=== PATIENT | male | born 1985 | race Caucasian/White ===

== ENCOUNTER 2022-01-02 08:59 | Emergency (ER) | payer OTHER ==
[~2022-01-02] VITALS: Ht 176 cm; Wt 75.7 kg
[2022-01-02] MEDS ORDERED: DICYCLOMINE 10 MG/ML (BENTYL) 2 ML AMP IM STA (10:22)
--- NOTE | 2022-01-02 10:28 | ED GI ---
General Chief Complaint: Abdominal/GI Problems Stated Complaint: RT SIDE PAIN Nursing Triage Note: RIGHT SIDED ABDOMINAL PAIN STARTED LAST WEEK "COMES AND GOES" SINCE 2014. THIS TIME HOWEVER STATES HE HAS SHOOTING PAIN GOING DOWN THE FRONT OF HIS RIGHT LEG INTO THE TOP OF HIS FOOT. Source of Information: Patient Exam Limitations: No Limitations History of Present Illness Date Seen by Provider: Jan 02, 2022 Time Seen by Provider: 10:18 Initial Comments Patient is a 36-year-old male who presents to the emergency department today with a chief complaint of right lower quadrant abdominal pain that started over the last 3 days patient states. He has had normal bowel movements, the last one was yesterday. Nonblack nonbloody. No nausea or vomiting. He states the pain radiates from the right lower quadrant, into his groin and then down into his anterior thigh and leg. He denies anything that exacerbates the pain. Movement, walking, nothing changes it. He has not taken anything for the pain. No fevers or chills. No COVID concerns. He states he has had similar pain in the past. Denies testicular swelling but states that he can "feel" his right testicle. No problems with urination. All other review of systems reviewed and negative except as stated. Timing/Duration: 3-4 Days Severity/Quality: Moderate Location: RLQ Radiation: Other (into the groin and down the right leg "sometimes") Activities at Onset: None Modifying Factors: Improves With Other (heavy lifting worsens pain) Associated Symptoms: Denies Symptoms Allergies and Home Medications Allergies Coded Allergies: No Known Drug Allergies (Unverified , 01/02/22) Patient Home Medication List Home Medication List Reviewed: Yes Review of Systems Review of Systems Constitutional: see HPI Respiratory: No Symptoms Reported Cardiovascular: No Symptoms Reported Gastrointestinal: Abdominal Pain Genitourinary: Other (hard to get started) Musculoskeletal: no symptoms reported Skin: no symptoms reported All Other Systems Reviewed Negative Unless Noted: Yes Past Gvqahfn-Gqziaj-Tiybxg Hx Patient Social History Tobacco Use?: No Use of E-Cig and/or Vaping dev: No Substance use?: No Alcohol Use?: No Pt feels they are or have been: No Immunizations Up To Date Influenza Vaccine Up-to-Date: No; Not Current First/Initial COVID19 Vaccinat: 2020 Second COVID19 Vaccination [place]: 2020 COVID19 Vaccine Room Service Associate: MODERNA Physical Exam Vital Signs Vital Signs - First Documented 01/02/22 09:20 Temp 36.3 Pulse 71 Resp 18 B/P (MAP) 102/60 (74) Pulse Ox 100 O2 Delivery Room Air Capillary Refill : Less Than 3 Seconds Height/Weight/BMI Height: '" Weight: lbs. oz. kg; 24.00 BMI Method: General Appearance: WD/WN, no apparent distress HEENT: PERRL/EOMI Neck: normal inspection Respiratory: lungs clear, normal breath sounds, no respiratory distress, no accessory muscle use Cardiovascular: regular rate, rhythm Peripheral Pulses: 2+ Radial Pulses (R), 2+ Radial Pulses (L) Gastrointestinal: normal bowel sounds, non tender, soft, no organomegaly, no pulsatile mass Extremities: normal range of motion, non-tender, normal inspection, no pedal edema, no calf tenderness Neurologic/Psychiatric: alert, oriented x 3, other (flat affect; takes several minutes to answer. vague about symptoms and even in answering questions on physical examination regarding reproducible pain) Skin: normal color Progress/Results/Core Measures Results/Orders Lab Results Laboratory Tests Test 01/02/22 13:50 Range/Units Urine Color YELLOW Urine Clarity SL CLOUDY Urine pH 6.5 5-9 Urine Specific Braxton <=1.005 1.016-1.022 Urine Protein NEGATIVE NEGATIVE Urine Glucose (UA) NEGATIVE NEGATIVE Urine Ketones NEGATIVE NEGATIVE Urine Nitrite NEGATIVE NEGATIVE Urine Bilirubin NEGATIVE NEGATIVE Urine Urobilinogen 1.0 < = 1.0 MG/DL Urine Leukocyte Esterase NEGATIVE NEGATIVE Urine RBC (Auto) NEGATIVE NEGATIVE Urine RBC NONE /HPF Urine WBC RARE /HPF Urine Squamous Epithelial Cells RARE /HPF Urine Crystals NONE /LPF Urine Bacteria TRACE /HPF Urine Casts NONE /LPF Urine Mucus NEGATIVE /LPF Urine Culture Indicated NO Urine Opiates Screen NEGATIVE NEGATIVE Urine Oxycodone Screen NEGATIVE NEGATIVE Urine Methadone Screen NEGATIVE NEGATIVE Urine Propoxyphene Screen NEGATIVE NEGATIVE Urine Barbiturates Screen NEGATIVE NEGATIVE Ur Tricyclic Antidepressants Screen NEGATIVE NEGATIVE Urine Phencyclidine Screen NEGATIVE NEGATIVE Urine Amphetamines Screen NEGATIVE NEGATIVE Urine Methamphetamines Screen NEGATIVE NEGATIVE Urine Benzodiazepines Screen NEGATIVE NEGATIVE Urine Cocaine Screen NEGATIVE NEGATIVE Urine Cannabinoids Screen NEGATIVE NEGATIVE My Orders Orders - TANJA KAY MD Ua Culture If Indicated (01/02/22 10:22) Drug Screen Stat (Urine) (01/02/22 10:22) Ketorolac Injection (Toradol Injection) (01/02/22 10:30) Dicyclomine Injection (Bentyl Injection) (01/02/22 10:22) Medications Given in ED Vital Signs/I&O 01/02/22 01/02/22 09:20 14:22 Temp 36.3 Pulse 71 68 Resp 18 18 B/P (MAP) 102/60 (74) 136/106 Pulse Ox 100 98 O2 Delivery Room Air Blood Pressure Mean: 74 Progress Progress Note : Time: 14:12 Progress Note Had great difficulty in obtaining urine from the patient. When he initially voided the wrong patient stickers were placed on the specimen, the lab due to policy, would not send the specimen back. Patient's pain was controlled with the Toradol and dicyclomine. He has no concerning findings on physical exam for acute surgical process. I discussed with him the potential for ureteral stone. We will assess for microscopic hematuria with urinalysis. Also secondary to his overall demeanor and hesitancy with exam and questioning checking a urine drug screen. He has ambulated back and forth to the bathroom several times. He has tolerated a lunch tray without nausea or vomiting. Anticipate discharge to home with NSAIDs, return precautions and follow-up with primary care. Departure Impression Primary Impression: Abdominal pain Qualified Codes: R10.31 - Right lower quadrant pain Disposition: 01 HOME, SELF-CARE Condition: Improved Departure-Patient Inst. Decision time for Depature: 14:13 Referrals: [facility]/ARIN LOTFON,LOCAL PHYSICIAN (PCP) Primary Care Physician Patient Instructions: Abdominal Pain, Adult ED Add. Discharge Instructions: Follow a clear liquid diet for the next 6 to 12 hours, if you are tolerating this well you can advance as tolerated. Take [id number] Aleve or generic naproxen 2 pills twice daily with food as needed for pain. If you develop a fever over 101, worsening abdominal pain, vomiting, black or bloody stools please come back to the emergency room for reevaluation. You should follow-up with a primary care physician, potentially through [facility] for further evaluation and management of this chronic pain. Copy Copies To 1: [facility]/TANJA MONTELONGO MD Jan 02, 2022 10:28
[2022-01-02] MEDS ORDERED: KETOROLAC 30 MG/ML VIAL IM ONE (10:30)
[2022-01-02 13:53] LABS: BILIRUBIN,URINE NEGATIVE (NEGATIVE); CLARITY,URINE SL CLOUDY; COLOR,URINE YELLOW; GLUCOSE, URINE (UA) NEGATIVE (NEGATIVE); KETONES,URINE NEGATIVE (NEGATIVE); LEUKOCYTE ESTERASE ,URINE NEGATIVE (NEGATIVE); NITRITE,URINE NEGATIVE (NEGATIVE); PH,URINE 6.5 (5-9); PROTEIN,URINE NEGATIVE (NEGATIVE)
[2022-01-02 14:01] LABS: BACTERIA,URINE TRACE /HPF; SQUAMOUS EPITHELIAL CELL,UR RARE /HPF; WBC,URINE RARE /HPF
[2022-01-02 14:11] LABS: AMPHETAMINE SCREEN, URINE NEGATIVE (NEGATIVE); BARBITURATE SCREEN URINE NEGATIVE (NEGATIVE); BENZODIAZEPINES SCREEN URINE NEGATIVE (NEGATIVE); CANNABINOID SCREEN, URINE NEGATIVE (NEGATIVE); COCAINE SCREEN URINE NEGATIVE (NEGATIVE); METHADONE STAT NEGATIVE (NEGATIVE); OPIATE SCREEN URINE NEGATIVE (NEGATIVE); OXYCODONE STAT NEGATIVE (NEGATIVE); PROPOXYPHENE STAT NEGATIVE (NEGATIVE); TRICYCLIC ANTIDEPRESSANTS SCRE NEGATIVE (NEGATIVE)
[2022-01-02 14:22] VITALS: BP 136/106
== END 2022-01-02 14:23 | disposition home or self-care (01) ==
LOC: ER 09:04
DX: R10.31 Right lower quadrant pain (principal)
CPT/HCPCS: 80306; 81000; 99283

== ENCOUNTER 2022-01-22 15:30 | Emergency (ER) | payer OTHER ==
[~2022-01-22] VITALS: Ht 177 cm; Wt 73.0 kg
--- NOTE | 2022-01-22 15:58 | ED GI ---
General Chief Complaint: Abdominal/GI Problems Stated Complaint: ABD PAIN,BLOOD IN STOOL Nursing Triage Note: PT AMB TO TRIAGE PT CO OF ABD PAIN 8/10 STATES ALSO HAS RECTAL BLEEDING. STATES STARTED COUPLE YEARS AGO. Source of Information: Patient Exam Limitations: No Limitations History of Present Illness Date Seen by Provider: Jan 22, 2022 Time Seen by Provider: 15:55 Initial Comments To ER by private vehicle with reports of right-sided abdominal pain for several years associated with bloody bowel movements for several years. He has diffuse body aches today which she attributes to being on day 6 of tapering off of his Suboxone. 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 He states that nothing makes this better or worse. He does have some rectal pain with bowel movements. Timing/Duration: 1-2 Days Severity/Quality: Moderate Location: Generalized Abdomen Radiation: No Radiation Activities at Onset: None Allergies and Home Medications Allergies Coded Allergies: No Known Drug Allergies (Unverified , 01/02/22) Patient Home Medication List Home Medication List Reviewed: Yes Review of Systems Review of Systems Constitutional: see HPI EENTM: No Symptoms Reported Respiratory: No Symptoms Reported Cardiovascular: No Symptoms Reported Gastrointestinal: See HPI, Abdominal Pain Genitourinary: No Symptoms Reported Musculoskeletal: no symptoms reported Skin: no symptoms reported Psychiatric/Neurological: No Symptoms Reported Endocrine: No Symptoms Reported Hematologic/Lymphatic: No Symptoms Reported Past Uewayvm-Dsumpk-Qozjqr Hx Patient Social History Tobacco Use?: No Substance use?: No Alcohol Use?: No Pt feels they are or have been: No Immunizations Up To Date Influenza Vaccine Up-to-Date: No; Not Current First/Initial COVID19 Vaccinat: 2020 Second COVID19 Vaccination [place]: 2020 Third COVID19 Vaccination Date: 2020 Past Medical History Surgery/Hospitalization HX: HX TAKING SYBOXIN, CLEFT LIP SURGERY Physical Exam Vital Signs Vital Signs - First Documented 01/22/22 15:35 Temp 36.9 Pulse 66 Resp 18 B/P (MAP) 125/79 (94) Pulse Ox 99 Capillary Refill : Less Than 3 Seconds Height/Weight/BMI Height: '" Weight: lbs. oz. kg; 23.00 BMI Method: General Appearance: WD/WN, no apparent distress Neck: non-tender, full range of motion Respiratory: no respiratory distress, no accessory muscle use Cardiovascular: regular rate, rhythm, no murmur Gastrointestinal: normal bowel sounds, non tender, soft Extremities: normal range of motion, non-tender Neurologic/Psychiatric: alert, oriented x 3, other (When asked where he lives or if he is from the area he replies "well it depends on where I , you know they can track all of that, I know that makes me sound like a conspiracy therapist") Skin: normal color, warm/dry Progress/Results/Core Measures Results/Orders Vital Signs/I&O 01/22/22 15:35 Temp 36.9 Pulse 66 Resp 18 B/P (MAP) 125/79 (94) Pulse Ox 99 Blood Pressure Mean: 94 Departure Impression Primary Impression: History of rectal bleeding Disposition: HOME, SELF-CARE Condition: Stable Departure-Patient Inst. Decision time for Depature: 15:57 Referrals: [facility] LEAHY BRETT D DO KIDO, TAKAAKI MD NO,LOCAL PHYSICIAN (PCP) Primary Care Physician Patient Instructions: No Instuctions Given Add. Discharge Instructions: 1. Call one of the surgeons listed to make an appointment to be seen for follow-up to discuss colonoscopy. All discharge instructions reviewed with patient and/or family. Voiced understanding. ROBERT PINEDA WATERWORKS OPERATOR Jan 22, 2022 15:57
[2022-01-22 16:19] LABS: ALBUMIN 4.3 GM/DL (3.2-4.5); BASOPHILS % (AUTO) 0 % (0-10); EOSINOPHILS # (AUTO) 0.2 10^3/uL (0.0-0.3); EOSINOPHILS % (AUTO) 3 % (0-10); HEMATOCRIT 39 % (40-54); LYMPHOCYTES # (AUTO) 1.3 10^3/uL (1.0-4.0); LYMPHOCYTES % (AUTO) 23 % (12-44); MEAN CORPUSCULAR HEMOGLOBIN 30 pg (25-34); MEAN CORPUSCULAR HGB CONC 36 g/dL (32-36); MEAN CORPUSCULAR VOLUME 83 fL (80-99); MONOCYTES # (AUTO) 0.4 10^3/uL (0.0-1.0); MONOCYTES % (AUTO) 7 % (0-12); NEUTROPHILS # (AUTO) 3.6 10^3/uL (1.8-7.8); NEUTROPHILS % (AUTO) 66 % (42-75); PLATELET COUNT 240 10^3/uL (130-400); WHITE BLOOD COUNT 5.5 10^3/uL (4.3-11.0)
[2022-01-22 16:20] LABS: POTASSIUM 3.9 MMOL/L (3.6-5.0)
[2022-01-22 16:21] LABS: CALCIUM 8.9 MG/DL (8.5-10.1)
[2022-01-22 16:22] LABS: TOTAL PROTEIN 6.5 GM/DL (6.4-8.2)
[2022-01-22 16:24] LABS: BILIRUBIN,TOTAL 0.5 MG/DL (0.1-1.0)
[2022-01-22 16:25] LABS: CREATININE SERUM 0.87 MG/DL (0.60-1.30)
--- NOTE | 2022-01-22 16:36 | Diagnostic Imaging Report ---
PROCEDURE: CT abdomen and pelvis without contrast. TECHNIQUE: Multiple contiguous axial images were obtained through the abdomen and pelvis without the use of intravenous contrast. Auto Exposure Controls were utilized during the CT exam to meet ALARA standards for radiation dose reduction. INDICATION: Abdominal pain, rectal bleeding Lung bases are clear. Liver appears normal. Gallbladder is contracted. There is moderate amount of food residue in the stomach. Pancreas appears normal. The spleen is not enlarged. Adrenals appear normal. Kidneys appear normal. Aorta is unremarkable. Small bowel is not dilated. Colon is unremarkable. Urinary bladder is normal. Prostate is not enlarged. There is no intraperitoneal free air or free fluid. There is no appendicitis. There are numerous small mesenteric lymph nodes. None of these appear pathologically enlarged IMPRESSION: Possible mesenteric lymphadenitis. Dictated by: Dictated on workstation # [id number]
[2022-01-22 16:46] VITALS: BP 125/79
[2022-01-23] MEDS ORDERED: TRM50T PO (20:08)
== END 2022-01-22 16:46 | disposition home or self-care (01) ==
LOC: EDUNIT# 15:30 → ER 15:33
DX: Z87.19 Personal history of other diseases of the digestive system (principal); R10.84 Generalized abdominal pain
CPT/HCPCS: 36415; 74176; 80053; 85025

== ENCOUNTER 2022-01-23 19:00 | Emergency (ER) | payer OTHER ==
[~2022-01-23] VITALS: Ht 177.8 cm; Wt 71.6 kg
[2022-01-23] MEDS ORDERED: TRM50T PO (20:08)
--- NOTE | 2022-01-23 20:11 | ED General ---
General Chief Complaint: Abdominal/GI Problems Stated Complaint: BACK PAIN,BODY PAIN,CAN'T SLEEP/EAT Nursing Triage Note: PT ARRIVED POV STATING THAT HE WAS TOLD TO COME TO THE ER FOR A SCRIPT FOR MORE SUBOXONE FOR HIS BACK PAIN. PT STATES THAT HIS DOCTOR TOLD HIM THAT HE NEEDED TO GO TO [place] BFORE SHE WILL PRESCRIBLE HIM MORE. Source of Information: Patient, Old Records Exam Limitations: No Limitations History of Present Illness Date Seen by Provider: Jan 23, 2022 Time Seen by Provider: 19:17 Initial Comments This 36-year-old gentleman presents to the emergency room with complaints of chronic right lower quadrant pain which has been worked up previously. He has had 2 prior visits to this ER in the past month for the same complaint. He has not had any change in his symptoms but presents because he believed he could get his Suboxone prescription renewed here. He reports that [facility] in [place] referred him to the ER locally to have this done. He previously received his primary care in [place]. He states he has been stuck in the [place] area and unable to get back home to resume care with his prior providers. He reports colonoscopy is scheduled with Dr. Castro next Thursday to help further evaluate his abdominal pain. He is frustrated to learn that we do not and cannot prescribe Suboxone from the emergency room as he thought he was directed here for that purpose. He thinks he may be withdrawing from Suboxone although he has not had any Suboxone or opioid pain medications for 7 days. He exhibits no vital signs suggestive of withdrawal and has not had any vomiting or diarrhea. He describes a burning sensation throughout his body and persistent right lower quadrant pain. He reports his primary care provider is Faina Barros in [place]. Allergies and Home Medications Allergies Coded Allergies: No Known Drug Allergies (Unverified , 01/02/22) Patient Home Medication List Home Medication List Reviewed: Yes Review of Systems Review of Systems Constitutional: no symptoms reported EENTM: no symptoms reported Respiratory: no symptoms reported Cardiovascular: no symptoms reported Gastrointestinal: see HPI Genitourinary: no symptoms reported Musculoskeletal: see HPI Skin: no symptoms reported Psychiatric/Neurological: See HPI Hematologic/Lymphatic: No Symptoms Reported Immunological/Allergic: no symptoms reported Past Airanww-Jwjwdg-Smepik Hx Patient Social History Tobacco Use?: No Substance use?: No Alcohol Use?: Yes Alcohol Frequency: Rarely Immunizations Up To Date First/Initial COVID19 Vaccinat: 2020 Second COVID19 Vaccination [place]: 2020 Third COVID19 Vaccination Date: 2020 Past Medical History Surgery/Hospitalization HX: HX TAKING SYBOXIN, CLEFT LIP SURGERY Surgeries: Yes (Cleft lip, nasal surgery) Respiratory: No Cardiac: No Neurological: No Reproductive Disorders: No Genitourinary: No Gastrointestinal: Yes (Chronic right lower quadrant pain) Musculoskeletal: No Endocrine: No HEENT: Yes (Cleft lip) Cancer: No Psychosocial: No Integumentary: No Physical Exam Vital Signs Vital Signs - First Documented 01/23/22 19:05 Pulse 72 B/P (MAP) 138/68 (91) Pulse Ox 99 O2 Delivery Room Air Capillary Refill : Height, Weight, BMI Height: '" Weight: lbs. oz. kg; 22.00 BMI Method: General Appearance: No Apparent Distress, WD/WN HEENT: PERRL/EOMI, Normal ENT Inspection, Other (Scar from cleft lip surgery) Neck: Normal Inspection Respiratory: Lungs Clear, Normal Breath Sounds, No Accessory Muscle Use Cardiovascular: Regular Rate, Rhythm, No Edema, No Murmur Gastrointestinal: Normal Bowel Sounds, Soft; No Distended; Tenderness (Mild in the right lower quadrant) Extremity: Normal Inspection, No Pedal Edema Neurologic/Psychiatric: Alert, Oriented x3, No Motor/Sensory Deficits, Normal Mood/Affect, Other (Somewhat of a difficult or confused historian) Skin: Normal Color, Warm/Dry Progress/Results/Core Measures Suspected Sepsis SIRS Temperature: Pulse: 72 Respiratory Rate: Blood Pressure 138 /68 Mean: 91 Results/Orders My Orders Orders - PHILLIP ROGERS MD Tramadol Tablet (Ultram Tablet) (01/23/22 20:15) Vital Signs/I&O 01/23/22 19:05 Pulse 72 B/P (MAP) 138/68 (91) Pulse Ox 99 O2 Delivery Room Air Capillary Refill : Blood Pressure Mean: 91 Progress Note : Time: 20:13 Progress Note Vital signs are unremarkable. Patient's exam is basically unchanged from what has been documented earlier and he reports no change in his GI or abdominal symptoms. He is pursuing further work-up for his abdominal pain with colonoscopy with Dr. Castro. His primary concern today was to renew a Suboxone prescription. No prior Suboxone prescription or opioid prescription could be found in his filling record or [facility] tracks. I informed him that I was unable to help him with Suboxone. I do not want him to take NSAID medications due to un known GI/abdominal pain etiology. I have advised him to use Tylenol as primary pain control. I did offer him a short supply of tramadol to help him get through the weekend until he can get his colonoscopy and outpatient follow-up. I did inform him this may cause problems with getting his Suboxone renewed by his provider in [place] when he has follow-up there. He expressed u nderstanding and said he would appreciate the short-term tramadol prescription. See discharge instructions for further discussion Departure Impression Primary Impression: Chronic abdominal pain Additional Impression: Opioid dependence Qualified Codes: F11.29 - Opioid dependence with unspecified opioid-induced disorder Disposition: HOME, SELF-CARE Condition: Improved Departure-Patient Inst. Decision time for Depature: 20:05 Referrals: NO,LOCAL PHYSICIAN (PCP/Family) Primary Care Physician Patient Instructions: Abdominal Pain, Adult ED, CHRONIC PAIN Add. Discharge Instructions: Please follow through with your colonoscopy with Dr. Castro next week. In the meantime, use Tylenol (acetaminophen) up to 1000 mg every 6 hours as needed for primary pain control. You may add the Ultram (tramadol) as prescribed for pain not controlled by Tylenol. Please be aware that Ultram may cause drowsiness. Do not drive, operate machinery, or make important decisions while you are using Ultram. Ultram may also cause constipation. You may wish to use an [id number] stool softener such as Colace while on Ultram. Chronic pain management should be performed by a primary care provider. Please return to your primary care provider in [place] or establish with a new primary care provider locally to manage your chronic pain. Return to the ER if you have worsening symptoms despite following these instr uctions. All discharge instructions reviewed with patient and/or family. Voiced understanding. Scripts Tramadol HCl (Tramadol HCl) 50 Mg Tablet 50 MG PO Q6H PRN for PAIN-BREAKTHROUGH, #10 TAB 0 Refills Prov: PHILLIP ROGERS MD 01/23/22 PHILLIP ROGERS MD Jan 23, 2022 20:11
[2022-01-23 20:22] VITALS: BP 136/57
== END 2022-01-23 20:21 | disposition home or self-care (01) ==
LOC: EDUNIT# 19:00 → ER 19:02
DX: R10.31 Right lower quadrant pain (principal); G89.29 Other chronic pain; F11.20 Opioid dependence, uncomplicated
CPT/HCPCS: 99283